=== PATIENT | female | born 1985 | race Hispanic/Latino ===

== ENCOUNTER 2019-07-31 16:53 | Inpatient (IN) | payer OTHER, SELFPAY ==
[~2019-07-31 16:53] MED LIST: Iopamidol-370 76% 500 ML 1 ML ONE
[2019-07-31] MEDS ORDERED: Acetaminophen 500 MG TAB ONE (17:29)
[2019-07-31] MEDS ORDERED: Furosemide 40 MG/4 ML VIAL ONE (17:29)
[2019-07-31 17:39] LABS: #Eosinphils 0.1 thou/uL (0.0-0.7); #Lymphocytes 0.9 thou/uL (1.20-3.40); #Monocytes 0.4 thou/uL (0.11-0.59); %Basophils 0.2 % (0.0-1.0); %Eosinophils 0.7 % (0.0-10.0); %Lymphocytes 11.6 % (21.0-51.0); %Monocytes 5.8 % (0.0-10.0); %Neutrophils 81.6 % (42.0-75.0); Hemoglobin 13.9 g/dL (12.0-16.0); Mean Corpuscular HGB CONC 34.1 g/dL (32.0-36.0); Mean Corpuscular Hemoglobin 29.6 pg (27.0-31.0); Mean Corpuscular Volume 86.9 fL (78.0-98.0); Mean Platelet Volume 8.7 fL (7.4-10.4); Platelet Count 243 thou/uL (130-400); RBC Distribution Width 12.7 % (11.5-14.5); White Blood Cell (WBC) Count 7.3 thou/uL (4.8-10.8)
[2019-07-31 18:08] LABS: ALT (SGPT) 86 U/L (8-55); AST (SGOT) 72 U/L (5-34); Alkaline Phosphatase 110 U/L (40-110); Anion Gap 14 mmol/L (10-20); BUN (Urea Nitrogen) 14 mg/dL (7.0-18.7); Bilirubin, Total 0.3 mg/dL (0.2-1.2); Calc. Creatinine Clearance 0 mL/min (70-130); Calcium 8.9 mg/dL (7.8-10.44); Carbon Dioxide 22 mmol/L (22-29); Chloride 106 mmol/L (98-107); Estimated GFR-MDRD Greater than 90; Globulin 3.3 g/dL (2.4-3.5); Glucose 105 mg/dL (70-105); Potassium 3.6 mmol/L (3.5-5.1); Protein, Total 7.3 g/dL (6.0-8.3); Sodium 138 mmol/L (136-145)
--- NOTE | 2019-07-31 18:42 | RAD ---
PORTABLE CHEST: 07/31/19 PROVIDED CLINICAL HISTORY: Shortness of breath. FINDINGS: There is marked scoliosis of the thoracolumbar spine limiting evaluation. Spinal instrumentation is n oted associated with this. The cardiac and mediastinal silhouette is distorted and difficult to evalu ate without gross evidence for cardiomegaly. There is patchy consolidation present at the right lung base. The left lung appears grossly clear. There is no definite evidence for pleural fluid or pneumot horax. IMPRESSION: Limited study with evidence for right basilar consolidation. Correlate with concerns for pneumonia. F ollow-up is recommended. POS: HANNAH
[2019-07-31] MEDS ORDERED: cefTRIAXone\\ROCEPHIN 1 GM VIAL ONE (19:18)
--- NOTE | 2019-07-31 19:18 | PDOC.HHP ---
Hospitalist HPI - History of Present Illness History of Present Illness: Patient with known PMH of severe scoliosis and asthma presents to the ED for evaluation of worsening shortness of breath. Tells me that she started having issues with her breathing about 1 week ago. She was able to manage the first few days at home with her usual inhalers/nebulizers. Tells me that over the last 2 days breathing is worsening and today she obtained no relief with her home inhalers. Refers very mild cough which is non productive and mainly brought about when her breathing is worse. To her knowledge she has not had any sick contacts. She only noticed some fever today. In ED she is noted to be tachypneic &tachycardic but maintaining good saturation in 2L via NC. Chest x-ray shows possible right basal pneumonia. Hospitalist ROS - Review of Systems Constitutional: reports: fever ENT: denies: ear pain, ear discharge, nose pain, nose discharge, nose congestion , mouth pain, mouth swelling, throat pain, throat swelling, other Respiratory: reports: cough, dry, shortness of breath, wheezing Cardiovascular: denies: chest pain, palpitations, orthopnea, paroxysmal noc. dyspnea, edema, light headedness, other Gastrointestinal: denies: nausea, vomiting, abdominal pain, diarrhea, constipation, melena, hematochezia, other Musculoskeletal: reports: back pain (chronic) Skin: denies: rash, lesions, arley, bruising, other Hospitalist History - Past Medical History Pulmonary: reports: asthma Musculoskeletal: reports: Other (Severe scoliosis with chronic back pain) - Family History Family History: denies: no pertinent history, arthritis, cancer, cardiac disorder, cerebrovascular accident, diabetes mellitus, gastrointestinal disorder , genitourinary disorder, hyperlipidemia, hypertension, musculoskeletal disorder , respiratory disorder, tuberculosis, thyroid disfunction, Other - Social History Smoking Status: Never smoker Activity level: independent ambulation - Exam General Appearance: NAD, awake alert Eye: PERRL ENT: normocephalic atraumatic, no oropharyngeal lesions, moist mucosa Neck: supple, no JVD Heart - other findings: Tachycardic Respiratory - other findings: Decreased breath sound b/l mild exp wheezing Gastrointestinal: negative: soft, non-tender, non-distended, normal bowel sounds , no palpable masses, no hepatomegaly, no splenomegaly, no bruit, no guarding, no rigidity, tender to palpation, distended, diminished bowl sounds, voluntary guarding Extremities - other findings: Severe scoliosis Neurological: negative: cranial nerve grossly intact, normal sensation to touch , no weakness, no focal deficits, no new deficit, facial droop, hemiplegia, speech deficit, vision deficit Musculoskeletal - other findings: Severe scoliosis Psychiatric: normal affect, normal behavior, A&O x 3 Hospitalist Results - Labs Result Diagrams: 07/31/19 17:33 07/31/19 17:33 Lab results: WBC 7.3 thou/uL (4.8-10.8) 07/31/19 17:33 Hgb 13.9 g/dL (12.0-16.0) 07/31/19 17:33 Hct 40.8 % (36.0-47.0) 07/31/19 17:33 MCV 86.9 fL (78.0-98.0) 07/31/19 17:33 Plt Count 243 thou/uL (130-400) 07/31/19 17:33 Neutrophils % 81.6 % (42.0-75.0) H 07/31/19 17:33 Sodium 138 mmol/L (136-145) 07/31/19 17:33 Potassium 3.6 mmol/L (3.5-5.1) 07/31/19 17:33 Chloride 106 mmol/L (98-107) 07/31/19 17:33 Carbon Dioxide 22 mmol/L (22-29) 07/31/19 17:33 BUN 14 mg/dL (7.0-18.7) 07/31/19 17:33 Creatinine 0.70 mg/dL (0.6-1.1) 07/31/19 17:33 Glucose 105 mg/dL (70-105) 07/31/19 17:33 Lactic Acid 2.2 mmol/L (0.5-2.2) 07/31/19 17:33 Calcium 8.9 mg/dL (7.8-10.44) 07/31/19 17:33 Total Bilirubin 0.3 mg/dL (0.2-1.2) 07/31/19 17:33 AST 72 U/L (5-34) H 07/31/19 17:33 ALT 86 U/L (8-55) H 07/31/19 17:33 Alkaline Phosphatase 110 U/L (40-110) 07/31/19 17:33 Troponin I Less than 0.010 ng/mL (< 0.028) 07/31/19 17:33 B-Natriuretic Peptide Less than 10.0 pg/mL (0-100) 07/31/19 17:33 Serum Total Protein 7.3 g/dL (6.0-8.3) 07/31/19 17:33 Albumin 4.0 g/dL (3.5-5.0) 07/31/19 17:33 Hospitalist H&P A/P - Problem (1) Pneumonia Code(s): J18.9 - PNEUMONIA, UNSPECIFIED ORGANISM Status: Acute Qualifiers: Pneumonia type: due to unspecified organism Laterality: right Lung location: lower lobe of lung Qualified Code(s): J18.9 - Pneumonia, unspecified organism (2) Asthma exacerbation Code(s): J45.901 - UNSPECIFIED ASTHMA WITH (ACUTE) EXACERBATION Status: Acute Qualifiers: Asthma severity: unspecified severity (3) Scoliosis Status: Chronic - Plan Plan: Pnemonia Patient with shortness of breath progression x 1 week On exam she appears short of breath but speaking in full sentences Chest x-ray with evidence of infiltrate CT chest is pending at time of admission Start IV Ceftriaxone plus azithromycin for CAP Continue with breathing treatments sched and PRN for asthma Follow blood & sputum cultures Continue with oxygen support Asthma exacerbation Continue with IV ABX per PNA plan Continue with IV solumedrol 40 mg TID Breathing treatments with duonebs sched and albuterol PRN Antitussives PRN Scoliosis with chronic back pain Restrictive lung disease as a result Continue with careful use of narcotics for back pain DVT PPX: Lovenox FULL CODE
[2019-07-31] MEDS ORDERED: Ondansetron PF 4 MG/2 ML Vial IVP PRN (19:30)
[2019-07-31] MEDS ORDERED: Albuterol Sulfate 2.5 mg/3 ml Neb NEB PRN (19:30)
[2019-07-31] MEDS ORDERED: Calcium Carbonate 500 MG ChewTAB PO PRN (19:30)
[2019-07-31] MEDS ORDERED: Senokot S 8.6-50 MG TAB PO PRN (19:30)
[2019-07-31] MEDS ORDERED: Albuterol 200 PUFF (6.7GM INHALER) INH PRN (19:50)
[2019-07-31] MEDS ORDERED: Azithromycin 500 MG VIAL ONE (20:00)
--- NOTE | 2019-07-31 20:06 | CT ---
CT ANGIOGRAM CHEST WITH IV CONTRAST AND 3D MIP RECONSTRUCTIONS: 07/31/19 PROVIDED CLINICAL HISTORY: Tachycardia and hypoxia. FINDINGS: There is no evidence for central or segmental pulmonary embolus. There are multifocal areas of ground glass opacity some of which demonstrate a mixed consolidation in volving both lungs predominantly in the right lung. These are without definitive peripheral distribut ion and do not demonstrate rounded morphology. The airway appears patent and of normal caliber. There is no pleural fluid or pneumothorax apparent. The visualized portions of the upper abdomen demonstrate no significant abnormality. Central appearin g left hepatic lobe cyst is seen. The osseous structures demonstrate no concerning lytic or blastic lesions. Extensive spinal scoliosis and multiple congenital vertebral and rib deformities are demonstrated. IMPRESSION: 1. No evidence for central or segmental pulmonary embolus. 2. Multifocal bilateral ground glass opacity and admixed consolidation. Imaging features can be seen with viral pneumonia, though are nonspecific and can occur with a variety of infectious and kennedy nfectious processes. POS: HANNAH
[2019-07-31] MEDS ORDERED: Azithromycin 500 MG in Sodium Chloride 0.9% 250 ML 250 ML IVPB SCH (21:00)
[2019-07-31] MEDS ORDERED: Ondansetron PF 4 MG/2 ML Vial ONE (21:02)
[2019-07-31 22:04] VITALS: BMI 30.5
[2019-08-01] MEDS: Sodium Chloride 0.9% 1,000 ML IV SCH ×5 (00:08→21:19)
[2019-08-01] MEDS: methylPREDNISolone Sod Succ 40 MG VIAL IVP SCH ×2 (00:08→06:04)
[2019-08-01] MEDS: Albuterol 200 PUFF (6.7GM INHALER) INH SCH ×4 (00:08→18:12)
[2019-08-01 04:46] LABS: #Lymphocytes 0.6 thou/uL (1.20-3.40); #Monocytes 0.1 thou/uL (0.11-0.59); #Neutrophils 6.4 thou/uL (1.40-6.50); %Eosinophils 0.3 % (0.0-10.0); %Lymphocytes 8.9 % (21.0-51.0); %Monocytes 1.9 % (0.0-10.0); Hemoglobin 13.3 g/dL (12.0-16.0); Mean Corpuscular HGB CONC 36.3 g/dL (32.0-36.0); Mean Corpuscular Hemoglobin 31.5 pg (27.0-31.0); Mean Corpuscular Volume 86.6 fL (78.0-98.0); Mean Platelet Volume 8.2 fL (7.4-10.4); Platelet Count 218 thou/uL (130-400); RBC Distribution Width 12.7 % (11.5-14.5); Red Blood Cell (RBC) Count 4.23 mill/uL (4.20-5.40); White Blood Cell (WBC) Count 7.2 thou/uL (4.8-10.8)
[2019-08-01 05:10] LABS: Anion Gap 10 mmol/L (10-20); BUN (Urea Nitrogen) 9 mg/dL (7.0-18.7); Calc. Creatinine Clearance 89 mL/min (70-130); Calcium 7.9 mg/dL (7.8-10.44); Carbon Dioxide 24 mmol/L (22-29); Chloride 109 mmol/L (98-107); Estimated GFR-MDRD Greater than 90; Glucose 143 mg/dL (70-105); Potassium 3.7 mmol/L (3.5-5.1); Sodium 139 mmol/L (136-145)
[2019-08-01] MEDS: HYDROcodone/Acetaminophen 5/325 mg Tablet PO PRN ×3 (06:05→14:12)
[2019-08-01] MEDS: Enoxaparin Sodium 40 MG/0.4 ML SYRINGE SC SCH (08:10)
--- NOTE | 2019-08-01 13:26 | EKG ---
Test Reason : SOB Blood Pressure : / mmHG Vent. Rate : 120 BPM Atrial Rate : 120 BPM P-R Int : 122 ms QRS Dur : 078 ms QT Int : 320 ms P-R-T Axes : 027 043 064 degrees QTc Int : 452 ms Sinus tachycardia Abnormal ECG Confirmed by JAMAICA OBRIEN, JESSICA Monroy ([id number]), newspaper or periodical editor GARY EBLL ([id number]) on 08/01/2019 1:25:49 PM Referred By: JAMAICA Confirmed By:JESSICA BERUMEN MD
[2019-08-01] MEDS ORDERED: Azithromycin 250 MG TAB PO SCH (14:00)
[2019-08-01] MEDS ORDERED: Ventolin HFA Inhaler 60 PUFF INHALER INH PRN (14:02)
--- NOTE | 2019-08-01 14:26 | CON ---
DATE OF CONSULTATION: 08/01/2019 REASON FOR CONSULTATION: COVID-19 in the setting of kyphoscoliosis and asthma. HISTORY OF PRESENT ILLNESS: A 34-year-old young woman, history of kyphoscoliosis with multiple surgeries in [facility] as well as asthma on chronic inhalers, who developed worsening shortness of breath for about a week. A little bit of cough associated with it, nonproductive. Apparently, her mother has a suspicion of COVID-19, although she was not tested, but the mother works for [employer] , and apparently, there has been some patients with COVID-19 diagnosed in the facility. She lives with 2 sisters and 1 niece, and all 3 are healthy at the moment. On arrival, she was tachypneic, tachycardic, and had an infiltrate in the right side. On arrival, her temp was 100.4, BP 111/65, pulse 135, respiratory rate 40, O2 saturations 95% on room air. She was awake and alert. The eye exam was normal. The lung exam showed clear breath sounds. Heart examination was normal, except for tachycardia. She had kyphoscoliosis, which was severe. She had a chest CT done on arrival, which showed no pulmonary embolism and multifocal bilateral ground- glass opacities. She has been started on Rocephin, azithromycin, and then switched to levofloxacin. I do not think the COVID test has returned yet. Currently, she is awake. She is still tachypneic. She is oriented, follows commands, pleasant. Denies pain. No headaches. No sore throat, odynophagia, or dysphagia. No abdominal pain. No diarrhea. No genitourinary symptoms. PAST MEDICAL HISTORY: Kyphoscoliosis with multiple surgeries in [facility]. Asthma. PAST SURGICAL HISTORY: Back surgeries in [facility]. SOCIAL HISTORY: Lives with family. Never smoker. FAMILY HISTORY: Mother has had a respiratory illness for the past 2 weeks, which seems to be improving. Apparently, she has not been tested for COVID-19. The mother works at [employer], and apparently there has been an outbreak of respiratory illness there according to the patient. CURRENT MEDICATIONS: Include, 1. P.r.n. medications, Proventil. 2. She takes [place] for back pain. 3. Lovenox. 4. Levofloxacin. 5. Methylprednisolone. PHYSICAL EXAMINATION: VITAL SIGNS: She is now down to 98.5, blood pressure 117/77, pulse 102, respirations 20-24, O2 saturation 96%-99% on 2 L. SKIN: Normal. She has a peripheral IV access. No lymphadenopathy. HEENT: Ocular movements conjugate. Oral cavity normal. NECK: With severe kyphoscoliosis in the chest. LUNGS: With no obvious wheezing or crackles. HEART: S1, S2. Regular rate. ABDOMEN: Soft, not distended. MUSCULOSKELETAL: No joint inflammatory activity noted. NEUROLOGIC: She moves extremities on command. Oriented. Follows commands. Speech is normal and recollection. Recall is normal. LABORATORY DATA: White cell count 7.2, hemoglobin 13, platelets 218, 89% neutrophils. Sodium 139, creatinine 0.65, AST 72, ALT 86. BNP was less than 10. Albumin 4.0. Urinalysis, 4 to 6 wbc's. Microbiology, influenza A and B were negative. Blood culture, no growth thus far. ASSESSMENT: 1. Severe kyphoscoliosis and asthma. 2. Multifocal pulmonary infiltrates and concern for coronavirus disease-19. It appears that her serology was positive according to the RN. She does have lymphocytopenia. In the face of a CT scan and some possible exposure in the home setting, this is a high risk for the viral illness. Patients with asthma are not necessarily at high risk for severe COVID-19, although there is concern with that, particularly the patients with severe asthma. She does have the additional kyphoscoliotic deformity, which will limit her total lung capacity and places at high risk for respiratory failure, so I think that she would be a good candidate for treatment with hydroxychloroquine, plus/minus azithromycin depending on the results of the test bearing in mind that those treatments are not yet evidence based short of small studies. Job ID: [id number] [facility]
[2019-08-01] MEDS ORDERED: Albuterol 200 PUFF (6.7GM INHALER) INH PRN (14:30)
--- NOTE | 2019-08-01 14:57 | PDOC.HOSPP ---
- Subjective Encounter Date: 08/01/19 Encounter Time: 14:55 Subjective: Says she is feeling a little better. Does not feel like she is wheezing as much as she did on admission. - Objective Vital Signs & Weight: Vital Signs (12 hours) Temp Pulse Resp BP BP Pulse Ox 08/01/19 10:42 97.4 F L 102 H 20 117/77 96 08/01/19 08:17 99 08/01/19 08:06 97.6 F 103 H 20 123/83 99 08/01/19 04:00 98.0 F 102 H 24 H 117/73 95 Weight Admit Weight 100 lb 3.2 oz Weight 100 lb 3.2 oz I&O: 07/31/19 08/01/19 08/02/19 06:59 06:59 06:59 Intake Total 480 Balance 480 Result Diagrams: 08/01/19 04:33 08/01/19 04:33 Hospitalist ROS - Medication Medications: Active Medications Generic Name Dose Route Start Last Admin Trade Name Freq PRN Reason Stop Dose Admin Hydrocodone Bitart/Acetaminophen 1 tab 07/31/19 19:30 08/01/19 14:12 [place] 5/325 PO 1 tab Q4H PRN Administration Moderate Pain (4-6) Albuterol Sulfate 2 puff 08/01/19 01:00 08/01/19 14:06 Proventil Hfa INH 2 puff [id number] NEVA Administration Enoxaparin Sodium 40 mg 08/01/19 09:00 08/01/19 08:10 Lovenox SC 40 mg 0900 NEVA Administration Sodium Chloride 1,000 mls @ 125 mls/hr 07/31/19 19:30 08/01/19 10:38 Normal Saline 0.9% IV Not Given .Q8H NEVA - Exam General Appearance: NAD, awake alert Heart: RRR, no murmur, no gallops, no rubs, normal peripheral pulses Respiratory - other findings: Very fine rales. No wheezes. Short breaths ( likely due to scoliosis). Gastrointestinal: soft, non-tender, non-distended, normal bowel sounds, no palpable masses, no hepatomegaly, no splenomegaly, no bruit Extremities: no cyanosis, no clubbing, no edema Hosp A/P (1) COVID-19 virus infection Code(s): U07.1 - COVID-19 Status: Acute (2) Asthma exacerbation Code(s): J45.901 - UNSPECIFIED ASTHMA WITH (ACUTE) EXACERBATION Status: Acute Qualifiers: Asthma severity: unspecified severity (3) Pneumonia Code(s): J18.9 - PNEUMONIA, UNSPECIFIED ORGANISM Status: Acute Qualifiers: Pneumonia type: due to unspecified organism Laterality: right Lung location: lower lobe of lung Qualified Code(s): J18.9 - Pneumonia, unspecified organism (4) Scoliosis Status: Chronic - Plan Covid: ID consult: Hydroxychloroquine and Azithro given her high risk with asthma and severe scoliosis. Modest steroids. Resp failure: Supplemental oxygen. Sats are good on 2 lpm/NC for now. Asthma: MDI Low dose steroids. Feeling better overall.
[2019-08-01] MEDS: Acetaminophen 325 MG TAB PO PRN (16:36)
[2019-08-01] MEDS ORDERED: cefTRIAXone\\ROCEPHIN 1 GM in Sodium Chloride 0.9% 100 ML IVPB SCH (20:00)
[2019-08-01] MEDS ORDERED: Azithromycin 500 MG in Sodium Chloride 0.9% 250 ML 250 ML IVPB SCH (21:00)
[2019-08-01] MEDS: Azithromycin 250 MG TAB PO SCH (21:17)
[2019-08-01] MEDS: Hydroxychloroquine Sulfate 200 MG TAB PO SCH (21:17)
[2019-08-02] MEDS: Albuterol 200 PUFF (6.7GM INHALER) INH SCH ×6 (01:30→23:50)
[2019-08-02] MEDS: Hydroxychloroquine Sulfate 200 MG TAB PO SCH ×2 (08:31→20:10)
[2019-08-02] MEDS: Enoxaparin Sodium 40 MG/0.4 ML SYRINGE SC SCH (08:31)
[2019-08-02] MEDS: Sodium Chloride 0.9% 1,000 ML IV SCH ×3 (08:35→16:30)
[2019-08-02] MEDS ORDERED: methylPREDNISolone Sod Succ 40 MG VIAL IVP SCH (09:00)
[2019-08-02] MEDS: HYDROcodone/Acetaminophen 5/325 mg Tablet PO PRN ×2 (09:58→19:56)
[2019-08-02 10:31] LABS: #Lymphocytes 0.9 thou/uL (1.20-3.40); #Monocytes 0.4 thou/uL (0.11-0.59); #Neutrophils 10.8 thou/uL (1.40-6.50); %Basophils 0.1 % (0.0-1.0); %Eosinophils 0.2 % (0.0-10.0); %Lymphocytes 7.6 % (21.0-51.0); %Monocytes 3.1 % (0.0-10.0); Hemoglobin 12.4 g/dL (12.0-16.0); Mean Corpuscular HGB CONC 33.4 g/dL (32.0-36.0); Mean Corpuscular Hemoglobin 28.9 pg (27.0-31.0); Mean Corpuscular Volume 86.4 fL (78.0-98.0); Mean Platelet Volume 7.9 fL (7.4-10.4); Platelet Count 285 thou/uL (130-400); RBC Distribution Width 12.5 % (11.5-14.5); White Blood Cell (WBC) Count 12.1 thou/uL (4.8-10.8)
[2019-08-02 10:56] LABS: ALT (SGPT) 142 U/L (8-55); AST (SGOT) 88 U/L (5-34); Albumin 3.4 g/dL (3.5-5.0); Alkaline Phosphatase 117 U/L (40-110); Anion Gap 8 mmol/L (10-20); BUN (Urea Nitrogen) 8 mg/dL (7.0-18.7); Bilirubin, Total 0.4 mg/dL (0.2-1.2); Calc. Creatinine Clearance 97 mL/min (70-130); Calcium 8.3 mg/dL (7.8-10.44); Carbon Dioxide 24 mmol/L (22-29); Chloride 108 mmol/L (98-107); Estimated GFR-MDRD Greater than 90; Globulin 3.1 g/dL (2.4-3.5); Glucose 79 mg/dL (70-105); Potassium 3.2 mmol/L (3.5-5.1); Protein, Total 6.5 g/dL (6.0-8.3); Sodium 137 mmol/L (136-145)
--- NOTE | 2019-08-02 15:25 | PDOC.HOSPP ---
- Subjective Encounter Date: 08/02/19 Encounter Time: 15:23 Subjective: Feeling better. Said she was a little short of breath this morning and moreso when she got up to go to the bathroom. That is better this afternoon. - Objective Vital Signs & Weight: Vital Signs (12 hours) Temp Pulse Resp BP BP Pulse Ox 08/02/19 12:04 97.5 F L 103 H 18 127/78 99 08/02/19 07:27 98.1 F 109 H 22 H 133/87 95 08/02/19 03:41 97.8 F 91 16 133/74 99 Weight Admit Weight 100 lb 3.2 oz Weight 100 lb 3.2 oz I&O: 08/01/19 08/02/19 08/03/19 06:59 06:59 06:59 Intake Total 2480 Balance 2480 Result Diagrams: 08/02/19 10:13 08/02/19 10:13 Hospitalist ROS - Medication Medications: Active Medications Generic Name Dose Route Start Last Admin Trade Name Freq PRN Reason Stop Dose Admin Acetaminophen 650 mg 07/31/19 19:30 08/01/19 16:36 Tylenol PO 650 mg Q4H PRN Administration Headache/Fever/Mild Pain (1-3) Hydrocodone Bitart/Acetaminophen 1 tab 07/31/19 19:30 08/02/19 09:58 [place] 5/325 PO 1 tab Q4H PRN Administration Moderate Pain (4-6) Albuterol Sulfate 2 puff 08/01/19 01:00 08/02/19 12:05 Proventil Hfa INH 2 puff [id number] NEVA Administration Azithromycin 250 mg 08/01/19 21:00 08/01/19 21:17 Zithromax PO 08/04/19 21:01 250 mg 2100 NEVA Administration Calcium Carbonate 1,000 mg 07/31/19 19:30 08/01/19 16:36 Tums PO 1,000 mg Q4H PRN Administration Heartburn or Indigestion Enoxaparin Sodium 40 mg 08/01/19 09:00 08/02/19 08:31 Lovenox SC 40 mg 0900 NEVA Administration Sodium Chloride 1,000 mls @ 125 mls/hr 07/31/19 19:30 08/02/19 08:35 Normal Saline 0.9% IV 1,000 mls .Q8H NEVA Administration Methylprednisolone Sodium Succinate 40 mg 08/02/19 09:00 08/02/19 08:32 Solu-Medrol IVP 40 mg DAILY NEVA Administration - Exam General Appearance: NAD, awake alert Heart: RRR, no murmur, no gallops, no rubs, normal peripheral pulses Respiratory: CTAB, no wheezes, no rales, no ronchi Respiratory - other findings: Exam is a little limited by her body habitus/ severe scoliosis. Gastrointestinal: soft, non-tender, non-distended, normal bowel sounds Neurological: no focal deficits Musculoskeletal: normal tone Musculoskeletal - other findings: Severe scoliosis. Hosp A/P (1) COVID-19 virus infection Code(s): U07.1 - COVID-19 Status: Acute (2) Asthma exacerbation Code(s): J45.901 - UNSPECIFIED ASTHMA WITH (ACUTE) EXACERBATION Status: Acute Qualifiers: Asthma severity: unspecified severity (3) Pneumonia Code(s): J18.9 - PNEUMONIA, UNSPECIFIED ORGANISM Status: Acute Qualifiers: Pneumonia type: due to unspecified organism Laterality: right Lung location: lower lobe of lung Qualified Code(s): J18.9 - Pneumonia, unspecified organism (4) Scoliosis Status: Chronic (5) Transaminitis Code(s): R74.0 - NONSPEC ELEV OF LEVELS OF TRANSAMNS & LACTIC ACID DEHYDRGNSE Status: Acute - Plan Covid: ID consult appreciated. Hydroxychloroquine and Azithro given her high risk with asthma and severe scoliosis. Modest steroids. Seems to be doing fairly well. She has no idea how she might have been exposed. Resp failure: Supplemental oxygen. Sats are good on 2 lpm/NC for now. Will try to wean if she is still doing well tomorrow. Asthma: MDI Low dose steroids. Feeling better overall. Disposition: She lives with her mother, sister and niece. They are asymptomatic. She thinks she could isolate at home. If she remains afebrile tomorrow and she is breathing comfortably, consider discharge. Resource Center consulted to see if she may need help with meds.
[2019-08-02] MEDS ORDERED: Lorazepam 2 MG/ML VIAL ONE (15:46)
[2019-08-02] MEDS ORDERED: Morphine 4 MG/ML VIAL ONE (15:51)
[2019-08-02 16:28] LABS: Actual Bicarbonate (HCO3a) 21.8 mEq/L (22-28); CO2 Tension 34.2 mmHg (35.0-45.0); Calcium, Ionized 1.17 mmol/L (1.12-1.30); Carboxyhemoglobin (COHb) 0.1 gm% (0.0-3.0); Hemoglobin (Hb) 12.9 g/dL (12.0-16.0); O2 Tension (PaO2) 165.9 mmHg (80.0-100.0); Potassium - ABG Lab 3.65 mmol/L (3.70-5.30); pH, Arterial 7.42 (7.35-7.45)
[2019-08-02 16:29] LABS: Puncture Site RRA
--- NOTE | 2019-08-02 17:14 | CON ---
DATE OF CONSULTATION: HISTORY OF PRESENT ILLNESS: A 34-year-old unfortunate female from home, apparently has kyphoscoliosis, history of asthma, apparently presented to the ER with symptoms of shortness of breath. X-ray showed right-sided pneumonia. The serology for COVID viral infection 19 was positive. She was placed in isolation, started on Zithromax and Plaquenil 24 hours ago. This morning, she was doing well. Later on this evening, she started having more difficulty of breathing and shortness of breath. Blood gas done on an emergency basis on a non-rebreather shows a pO2 of 165, pCO2 of 34, pH 7.42. Lytes were normal. Potassium was low at 3.6. Primary care physician went to the room and notified me that she was not wheezing. Because of COVID positive serology, we are trying to minimize exposure, cannot go in the room. PAST MEDICAL HISTORY: Pertinent for previous gallstones, scoliosis, and asthma. PREVIOUS SURGERIES: Multiple. Back, she has a sandhya in place. SOCIAL HISTORY: No alcohol. No tobacco. No drug history. MEDICATIONS: Home medicines include Flovent 110, albuterol, tramadol, pregabalin, cyclobenzaprine. Hospital medicines are Zithromax, hydroxychloroquine, steroids, and albuterol inhaler. ALLERGIES: NONE. PHYSICAL EXAMINATION: VITAL SIGNS: She is breathing about 25, temperature 98, pulse 70, blood pressure , saturations now 100%. CHEST: Minimal wheezing, no crackles. CARDIAC: Normal S1 and S2. ABDOMEN: No masses. LABORATORY DATA: Liver function slightly elevated. ASSESSMENT: Respiratory failure, bronchopneumonia, coronavirus disease positive, history of asthma, severe kyphoscoliosis with a sandhya in place, chronic pain syndrome. Increased her steroids, added Maxipime and increased neb treatments, supportive care. If condition gets worse, anesthesia was present at the bedside, they would intubate her. TIME SPENT: This is a note of consultation, 70 minutes, 50% in direct patient care. Job ID: [id number]
--- NOTE | 2019-08-02 18:00 | PRG ---
DATE OF SERVICE: 08/02/2019 SUBJECTIVE: Ms. Bolanos has been transferred to the ICU because she became hypoxemic. Now, she has a 100% non-rebreathing Ventimask and saturating 100. OBJECTIVE: LUNGS: Scattered inspiratory crackles. HEART: S1 and S2. ABDOMEN: Soft. LABORATORY DATA: White cell count is 12.1, hemoglobin 12.4. Creatinine 0.6, AST 88, ALT 142. ASSESSMENT AND DISCUSSION: Severe kyphoscoliosis and asthma, multifocal pulmonary infiltrates with COVID positive PCR, lymphocytopenia and now respiratory decompensation, probably in part related to the baseline diminished lung capacity due to severe kyphoscoliosis associated with asthma. The patient was almost intubated this morning, but now she is doing well with 100% non-rebreather mask, but it is at high risk for having to require intubation due to limited lung reserve and superimposed infection. Job ID: [id number]
--- NOTE | 2019-08-02 19:06 | PRG ---
DATE OF SERVICE: 08/02/2019 The patient was seen on normal rounds earlier in the day and appeared to be doing fairly well. However, within a matter of just a few short minutes, the patient developed some pain in her chest and became more short of breath. She had sats noted down to 77% and her heart rate as high as 140. A code green was called and I responded promptly. The patient was leaning forward, clutching her chest and very tachypneic, we had increased her oxygen and her saturations were good at that point; however, she was on 100% non-rebreather and was still very tachypneic, continuing to have chest pain. She had a mg of Ativan initially. Subsequent EKG showed no acute ischemic changes. She then had a mg of morphine. She had no resolution of her tachypnea or her pain. She was therefore subsequently transferred to the ICU. There, the case was discussed with Dr. Cochran. We were finally able to get a blood gas, which fortunately revealed reasonable PO2 and there was no indication at that time for intubation. At this point, it is still not entirely clear to me what might have led to the patient's symptoms. I am concerned that she had possible PE, although she is on appropriate DVT prophylaxis. Patients with COVID are certainly more hypercoagulable and certainly needs to be considered going forward if she does not improve. She has a difficult assessment because of her severe scoliosis and her exam is limited and her ability to take a deep breath is profoundly limited. She may also have some GI related chest pain with the azithromycin and hydroxychloroquine given her severe scoliosis and altered anatomy. This is also in light of her steroids. We will cover with PPI. Total time in critical care was 63 minutes. Job ID: [id number]
[2019-08-02] MEDS: Ipratropium Oral Inhaler INH SCH ×2 (19:10→23:10)
[2019-08-02] MEDS: Azithromycin 250 MG TAB PO SCH (20:10)
[2019-08-02] MEDS: Cefepime 2 GM in Sodium Chloride 0.9% 100 ML IVPB SCH (20:10)
[2019-08-02] MEDS: methylPREDNISolone Sod Succ 40 MG VIAL IVP SCH (20:11)
[2019-08-03] MEDS: Albuterol 200 PUFF (6.7GM INHALER) INH SCH ×6 (02:21→22:21)
[2019-08-03 04:53] LABS: #Lymphocytes 0.7 thou/uL (1.20-3.40); #Monocytes 0.3 thou/uL (0.11-0.59); #Neutrophils 7.1 thou/uL (1.40-6.50); %Basophils 0.2 % (0.0-1.0); %Eosinophils 0.2 % (0.0-10.0); %Lymphocytes 8.4 % (21.0-51.0); %Monocytes 3.4 % (0.0-10.0); %Neutrophils 87.8 % (42.0-75.0); Hemoglobin 12.4 g/dL (12.0-16.0); Mean Corpuscular HGB CONC 33.6 g/dL (32.0-36.0); Mean Corpuscular Hemoglobin 29.1 pg (27.0-31.0); Mean Corpuscular Volume 86.8 fL (78.0-98.0); Mean Platelet Volume 8.1 fL (7.4-10.4); Platelet Count 294 thou/uL (130-400); RBC Distribution Width 12.6 % (11.5-14.5); Red Blood Cell (RBC) Count 4.25 mill/uL (4.20-5.40); White Blood Cell (WBC) Count 8.1 thou/uL (4.8-10.8)
[2019-08-03 05:33] LABS: ALT (SGPT) 130 U/L (8-55); AST (SGOT) 64 U/L (5-34); Albumin 3.4 g/dL (3.5-5.0); Alkaline Phosphatase 133 U/L (40-110); Anion Gap 12 mmol/L (10-20); BUN (Urea Nitrogen) 11 mg/dL (7.0-18.7); Bilirubin, Total 0.3 mg/dL (0.2-1.2); Calc. Creatinine Clearance 98 mL/min (70-130); Calcium 8.5 mg/dL (7.8-10.44); Carbon Dioxide 20 mmol/L (22-29); Chloride 109 mmol/L (98-107); Estimated GFR-MDRD Greater than 90; Globulin 3.2 g/dL (2.4-3.5); Glucose 156 mg/dL (70-105); Potassium 3.5 mmol/L (3.5-5.1); Protein, Total 6.6 g/dL (6.0-8.3); Sodium 137 mmol/L (136-145)
[2019-08-03] MEDS: Tiotropium Bromide 4 GM INHALER IH SCH ×2 (06:02→09:59)
--- NOTE | 2019-08-03 07:26 | RAD ---
SINGLE VIEW CHEST: Date: 08/03/2019 COMPARISON: 07/31/2019. HISTORY: Pneumonia. FINDINGS: Single view of the chest is limited secondary to rotation. A sandhya is seen in the spine from prior scol iosis surgery. The heart is normal in size. There is likely an infiltrate in the right lower lobe. Th ere is a questionable small left pleural effusion. IMPRESSION: Stable exam. POS: [facility]
[2019-08-03] MEDS: methylPREDNISolone Sod Succ 40 MG VIAL IVP SCH ×2 (07:52→21:36)
[2019-08-03] MEDS: Enoxaparin Sodium 40 MG/0.4 ML SYRINGE SC SCH (07:52)
[2019-08-03] MEDS: Hydroxychloroquine Sulfate 200 MG TAB PO SCH ×2 (07:53→21:36)
[2019-08-03] MEDS: Cefepime 2 GM in Sodium Chloride 0.9% 100 ML IVPB SCH ×2 (07:57→21:35)
[2019-08-03] MEDS ORDERED: Potassium Chloride 20 MEQ TAB PO ONE (09:00)
[2019-08-03] MEDS: ALPRAZolam 0.25 MG TAB PO PRN ×2 (09:05→21:36)
[2019-08-03] MEDS: HYDROcodone/Acetaminophen 5/325 mg Tablet PO PRN (10:03)
--- NOTE | 2019-08-03 13:13 | PDOC.HOSPP ---
- Subjective Encounter Date: 08/03/19 Encounter Time: 13:09 Subjective: Doing better. Breathing comfortably. No cough. - Objective Vital Signs & Weight: Vital Signs (12 hours) Temp Pulse Ox 08/03/19 12:00 98.1 F 08/03/19 10:42 99 08/03/19 08:00 97.7 F 08/03/19 07:09 100 08/03/19 04:00 98.5 F 08/03/19 02:17 100 Weight Admit Weight 103 lb 2.821 oz Weight 100 lb 3.2 oz Most Recent Monitor Data Heart Rate from ECG 92 NIBP 127/79 NIBP BP-Mean 95 Respiration from ECG 30 SpO2 100 I&O: 08/02/19 08/03/19 08/04/19 06:59 06:59 06:59 Intake Total 2480 720 240 Output Total 1350 400 Balance 2480 -630 -160 Result Diagrams: 08/03/19 03:29 08/03/19 03:29 Additional Labs: Accuchecks 08/02/19 15:50 POC Glucose 128 H Hospitalist ROS - Medication Medications: Active Medications Generic Name Dose Route Start Last Admin Trade Name Freq PRN Reason Stop Dose Admin Acetaminophen 650 mg 07/31/19 19:30 08/01/19 16:36 Tylenol PO 650 mg Q4H PRN Administration Headache/Fever/Mild Pain (1-3) Hydrocodone Bitart/Acetaminophen 1 tab 07/31/19 19:30 08/03/19 10:03 [place] 5/325 PO 1 tab Q4H PRN Administration Moderate Pain (4-6) Albuterol Sulfate 2 puff 08/01/19 14:30 08/02/19 15:50 Proventil Hfa INH 2 puff Q4H PRN Administration SOB &/or Wheezing Albuterol Sulfate 2 puff 08/02/19 18:30 08/03/19 10:15 Proventil Hfa INH 2 puff [id number] NEVA Administration Alprazolam 0.125 mg 08/03/19 08:39 08/03/19 09:05 Xanax PO 0.125 mg TIDPRN PRN Administration Anxiety Azithromycin 250 mg 08/01/19 21:00 08/02/19 20:10 Zithromax PO 08/04/19 21:01 250 mg 2100 NEVA Administration Calcium Carbonate 1,000 mg 07/31/19 19:30 08/01/19 16:36 Tums PO 1,000 mg Q4H PRN Administration Heartburn or Indigestion Enoxaparin Sodium 40 mg 08/01/19 09:00 08/03/19 07:52 Lovenox SC 40 mg 0900 NEVA Administration Hydroxychloroquine Sulfate 200 mg 08/02/19 21:00 08/03/19 07:53 Plaquenil PO 08/06/19 09:01 200 mg BID NEVA Administration Cefepime HCl 2 gm/ Sodium 100 mls @ 200 mls/hr 08/02/19 21:00 08/03/19 07:57 Chloride IVPB 100 mls Q12HR NEVA Administration Sodium Chloride 1,000 mls @ 50 mls/hr 08/02/19 18:00 08/02/19 16:30 Normal Saline 0.9% IV 1,000 mls .Q20H NEVA Administration Methylprednisolone Sodium Succinate 40 mg 08/02/19 21:00 08/03/19 07:52 Solu-Medrol IVP 40 mg BID NEVA Administration Tiotropium [place] 0 gm 08/03/19 07:00 08/03/19 09:59 Spiriva Respimat IH 4 gm DAILY-RT NEVA Administration - Exam General Appearance: NAD, awake alert Heart: RRR, no murmur, no gallops, no rubs, normal peripheral pulses Respiratory: CTAB, no wheezes, no rales, no ronchi, normal chest expansion, no tachypnea, normal percussion Respiratory - other findings: Diminished and shallow breaths due to scoliosis. Gastrointestinal: soft, non-tender, non-distended, normal bowel sounds, no palpable masses, no hepatomegaly, no splenomegaly, no bruit Extremities: no cyanosis, no clubbing, no edema Psychiatric: normal affect, normal behavior, A&O x 3 Hosp A/P (1) COVID-19 virus infection Code(s): U07.1 - COVID-19 Status: Acute (2) Asthma exacerbation Code(s): J45.901 - UNSPECIFIED ASTHMA WITH (ACUTE) EXACERBATION Status: Acute Qualifiers: Asthma severity: unspecified severity (3) Pneumonia Code(s): J18.9 - PNEUMONIA, UNSPECIFIED ORGANISM Status: Acute Qualifiers: Pneumonia type: due to unspecified organism Laterality: right Lung location: lower lobe of lung Qualified Code(s): J18.9 - Pneumonia, unspecified organism (4) Scoliosis Status: Chronic (5) Transaminitis Code(s): R74.0 - NONSPEC ELEV OF LEVELS OF TRANSAMNS & LACTIC ACID DEHYDRGNSE Status: Acute - Plan Covid: ID consult appreciated. Hydroxychloroquine and Azithro given her high risk with asthma and severe scoliosis. Steroids increased 08/03/19. Seems to be doing fairly well after her episode yesterday. At the time of the problem yesterday, she was not able to talk due to tachypnea. Talking to her today, it sounds like it might have been more of a panic attack. Excluding that, she has been very stable. If she remains afebrile and stable, she could likely DC home in the next day or two. Resp failure: Supplemental oxygen. Sats are good on 2 lpm/NC for now. Very briefly had sats in the 70's yesterday, but quickly resolved. Asthma: MDI Low dose steroids. Feeling better overall. Disposition: She lives with her mother, sister and niece. They are asymptomatic. Can likely DC back to home when ready.
[2019-08-03] MEDS: Sodium Chloride 0.9% 1,000 ML IV SCH (13:29)
--- NOTE | 2019-08-03 14:58 | PRG ---
DATE OF SERVICE: 08/03/2019 SUBJECTIVE: Ms. Bolanos is in the ICU still. She is now on a nasal cannula. She appears comfortable. OBJECTIVE: VITAL SIGNS: Normal. O2 saturations are 100%. LUNGS: With few crackles here and there. No wheezing. HEART: S1, S2. Regular rate. ABDOMEN: Soft. LABORATORY DATA: White cell count 8.1, hemoglobin 12.4, lymphocyte count is at 700. DIAGNOSTIC DATA: Chest x-ray with likely infiltrate in right lower lobe. ASSESSMENT AND DISCUSSION: Severe kyphoscoliosis, multiple prior surgeries, asthma, and proven COVID-19, positive PCR. The patient had an event yesterday, but now she is doing quite well off nonrebreathing mask. Job ID: [id number]
--- NOTE | 2019-08-03 15:47 | PRG ---
DATE OF SERVICE: 08/03/2019 SUBJECTIVE: Barbara Bolanos has been intermittently getting very anxious per my discussion with the nurses. She is in no distress. OBJECTIVE: VITAL SIGNS: When I walked in the room, oximetry 99 on 2 L, heart rate 96, blood pressure 128/75, respiratory rates in the 20s. LUNGS: Unchanged. HEART: Unchanged. ABDOMEN: Unchanged. LABORATORY DATA: White count 8.1, hemoglobin 12.4, platelets 294. Sodium 137, potassium 3.5, chloride 109, bicarb creatinine . Intake and outputs negative . Chest x-ray is unchanged. It is hard to interpret the film given her severe scoliosis. IMPRESSION: 1. Asthma. 2. Anxiety. 3. Borderline hypoxemia. She does not have an impressive infiltrate on her chest radiograph. I suspect with some anxiolytics, nebulizer treatments, and supportive care, we will see ongoing improvement. We may be able to decrease her steroids again tomorrow if she has a good night. Job ID: [id number]
[2019-08-03] MEDS: Azithromycin 250 MG TAB PO SCH (21:35)
[2019-08-03] MEDS: Acetaminophen 325 MG TAB PO PRN (21:36)
[2019-08-04] MEDS: Albuterol 200 PUFF (6.7GM INHALER) INH SCH ×6 (02:07→22:50)
[2019-08-04 06:52] LABS: #Monocytes 0.6 thou/uL (0.11-0.59); #Neutrophils 6.2 thou/uL (1.40-6.50); %Basophils 0.1 % (0.0-1.0); %Eosinophils 0.3 % (0.0-10.0); %Lymphocytes 12.6 % (21.0-51.0); %Monocytes 7.7 % (0.0-10.0); %Neutrophils 79.3 % (42.0-75.0); Hemoglobin 12.9 g/dL (12.0-16.0); Mean Corpuscular HGB CONC 34.8 g/dL (32.0-36.0); Mean Corpuscular Hemoglobin 30.1 pg (27.0-31.0); Mean Corpuscular Volume 86.5 fL (78.0-98.0); Mean Platelet Volume 7.4 fL (7.4-10.4); Platelet Count 358 thou/uL (130-400); RBC Distribution Width 12.5 % (11.5-14.5); White Blood Cell (WBC) Count 7.8 thou/uL (4.8-10.8)
[2019-08-04] MEDS: Acetaminophen 325 MG TAB PO PRN ×2 (07:02→17:30)
[2019-08-04 07:14] LABS: ALT (SGPT) 132 U/L (8-55); AST (SGOT) 54 U/L (5-34); Albumin 3.7 g/dL (3.5-5.0); Alkaline Phosphatase 131 U/L (40-110); Anion Gap 10 mmol/L (10-20); BUN (Urea Nitrogen) 13 mg/dL (7.0-18.7); Bilirubin, Total 0.3 mg/dL (0.2-1.2); Calc. Creatinine Clearance 89 mL/min (70-130); Calcium 8.8 mg/dL (7.8-10.44); Carbon Dioxide 25 mmol/L (22-29); Chloride 106 mmol/L (98-107); Estimated GFR-MDRD Greater than 90; Globulin 3.3 g/dL (2.4-3.5); Glucose 121 mg/dL (70-105); Potassium 4.3 mmol/L (3.5-5.1); Sodium 137 mmol/L (136-145)
[2019-08-04] MEDS: Cefepime 2 GM in Sodium Chloride 0.9% 100 ML IVPB SCH ×2 (08:09→19:46)
[2019-08-04] MEDS: Hydroxychloroquine Sulfate 200 MG TAB PO SCH ×2 (08:09→19:47)
[2019-08-04] MEDS: methylPREDNISolone Sod Succ 40 MG VIAL IVP SCH (08:09)
[2019-08-04] MEDS: Enoxaparin Sodium 40 MG/0.4 ML SYRINGE SC SCH (08:10)
[2019-08-04] MEDS: Tiotropium Bromide 4 GM INHALER IH SCH (08:10)
[2019-08-04] MEDS: HYDROcodone/Acetaminophen 5/325 mg Tablet PO PRN (11:50)
[2019-08-04] MEDS: Sodium Chloride 0.9% 1,000 ML IV SCH (12:00)
--- NOTE | 2019-08-04 13:26 | PDOC.HOSPP ---
- Subjective Encounter Date: 08/04/19 Subjective: Doing very well. No complaint except some back pain that is chronic for her. Takes Tramadol at home. No SOB. No cough. - Objective Vital Signs & Weight: Vital Signs (12 hours) Temp Pulse Resp BP BP Pulse Ox 08/04/19 11:55 97.3 F L 95 18 118/78 94 L 08/04/19 08:20 97.6 F 77 18 142/82 H 99 08/04/19 08:00 99 08/04/19 05:17 97.7 F 101 H 20 138/87 98 Weight Admit Weight 103 lb 2.821 oz Weight 100 lb 3.2 oz Most Recent Monitor Data Heart Rate from ECG 103 NIBP 112/77 NIBP BP-Mean 88 Respiration from ECG 27 SpO2 99 I&O: 08/03/19 08/04/19 08/05/19 06:59 06:59 06:59 Intake Total 720 1238 Output Total 1350 1300 Balance -630 -62 Result Diagrams: 08/04/19 06:40 08/04/19 06:40 Hospitalist ROS - Medication Medications: Active Medications Generic Name Dose Route Start Last Admin Trade Name Freq PRN Reason Stop Dose Admin Acetaminophen 650 mg 07/31/19 19:30 08/04/19 07:02 Tylenol PO 650 mg Q4H PRN Administration Headache/Fever/Mild Pain (1-3) Hydrocodone Bitart/Acetaminophen 1 tab 07/31/19 19:30 08/04/19 11:50 [place] 5/325 PO 1 tab Q4H PRN Administration Moderate Pain (4-6) Albuterol Sulfate 2 puff 08/01/19 14:30 08/02/19 15:50 Proventil Hfa INH 2 puff Q4H PRN Administration SOB &/or Wheezing Albuterol Sulfate 2 puff 08/02/19 18:30 08/04/19 10:42 Proventil Hfa INH 2 puff [id number] NEVA Administration Alprazolam 0.125 mg 08/03/19 08:39 08/03/19 21:36 Xanax PO 0.125 mg TIDPRN PRN Administration Anxiety Azithromycin 250 mg 08/01/19 21:00 08/03/19 21:35 Zithromax PO 08/04/19 21:01 250 mg 2100 NEVA Administration Calcium Carbonate 1,000 mg 07/31/19 19:30 08/01/19 16:36 Tums PO 1,000 mg Q4H PRN Administration Heartburn or Indigestion Enoxaparin Sodium 40 mg 08/01/19 09:00 08/04/19 08:10 Lovenox SC 40 mg 0900 NEVA Administration Hydroxychloroquine Sulfate 200 mg 08/02/19 21:00 08/04/19 08:09 Plaquenil PO 08/06/19 09:01 200 mg BID NEVA Administration Cefepime HCl 2 gm/ Sodium 100 mls @ 200 mls/hr 08/02/19 21:00 08/04/19 08:09 Chloride IVPB 100 mls Q12HR NEVA Administration Sodium Chloride 1,000 mls @ 50 mls/hr 08/02/19 18:00 08/04/19 12:00 Normal Saline 0.9% IV Not Given .Q20H NEVA Methylprednisolone Sodium Succinate 40 mg 08/02/19 21:00 08/04/19 08:09 Solu-Medrol IVP 40 mg BID NEVA Administration Pantoprazole Sodium 40 mg 08/04/19 09:00 08/04/19 08:09 Protonix PO 40 mg DAILY NEVA Administration Tiotropium [place] 0 gm 08/03/19 07:00 08/04/19 08:10 Spiriva Respimat IH 4 gm DAILY-RT NEVA Administration - Exam General Appearance: NAD, awake alert Heart: RRR, no murmur, no gallops, no rubs, normal peripheral pulses Respiratory: CTAB, no wheezes, no rales, no ronchi, normal chest expansion, no tachypnea, normal percussion Respiratory - other findings: Exam limited by habitus and inability to take deep breaths. Extremities: no cyanosis, no clubbing, no edema Musculoskeletal: normal tone Psychiatric: normal affect, normal behavior, A&O x 3 Hosp A/P (1) COVID-19 virus infection Code(s): U07.1 - COVID-19 Status: Acute (2) Asthma exacerbation Code(s): J45.901 - UNSPECIFIED ASTHMA WITH (ACUTE) EXACERBATION Status: Acute Qualifiers: Asthma severity: unspecified severity (3) Pneumonia Code(s): J18.9 - PNEUMONIA, UNSPECIFIED ORGANISM Status: Acute Qualifiers: Pneumonia type: due to unspecified organism Laterality: right Lung location: lower lobe of lung Qualified Code(s): J18.9 - Pneumonia, unspecified organism (4) Scoliosis Status: Chronic (5) Transaminitis Code(s): R74.0 - NONSPEC ELEV OF LEVELS OF TRANSAMNS & LACTIC ACID DEHYDRGNSE Status: Acute (6) Back pain Code(s): M54.9 - DORSALGIA, UNSPECIFIED Status: Acute - Plan Covid: ID consult appreciated. Hydroxychloroquine and Azithro given her high risk with asthma and severe scoliosis. Steroids increased 08/03/19. Seems to be doing fairly well after her episode yesterday. At the time of the problem yesterday, she was not able to talk due to tachypnea. Talking to her today, it sounds like it might have been more of a panic attack. Excluding that, she has been very stable. If she remains afebrile and stable, she could likely DC home in the next day or two. Resp failure: Supplemental oxygen. Sats are good on 2 lpm/NC for now. Very briefly had sats in the 70's yesterday, but quickly resolved. Asthma: MDI Low dose steroids. Feeling better overall. Decrease steroids to qday. Transaminitis: Will need to be follow as OP. Numbers have been stable. Likely related to the current viral infection. If remain elevated when convalescent, will need workup. Back pain: Related to scoliosis. Continue po pain meds. Disposition: She lives with her mother, sister and niece. They are asymptomatic. Can likely DC back to home when ready. Hopefully, she will be ready tomorrow.
[2019-08-04] MEDS: Azithromycin 250 MG TAB PO SCH (19:47)
[2019-08-04] MEDS: traMADol HCl 50 MG TAB PO SCH (19:48)
[2019-08-04 23:13] LABS: Bacteria/HPF None Seen HPF (None Seen); Bilirubin Negative (Negative); Blood, Urine Negative (Negative); Clarity Clear (Clear); Glucose, Urine (Dipstick) Normal (Negative); Leukocyte Negative Leu/uL (Negative); Nitrite Negative (Negative); Protein, Urine (Dipstick) 30 mg/dL (Neg-Trace); RBC/HPF 0-3 HPF (0-3); Squamous Epithelial 0-3 HPF (0-3); Urobilinogen Normal mg/dL (Less than 2); WBC/HPF 0-3 HPF (0-3)
[2019-08-05] MEDS: Albuterol 200 PUFF (6.7GM INHALER) INH SCH ×5 (03:42→18:28)
[2019-08-05] MEDS: Tiotropium Bromide 4 GM INHALER IH SCH (06:22)
[2019-08-05] MEDS: Sodium Chloride 0.9% 1,000 ML IV SCH (06:23)
[2019-08-05] MEDS: HYDROcodone/Acetaminophen 5/325 mg Tablet PO PRN ×2 (06:29→14:59)
[2019-08-05] MEDS: Cefepime 2 GM in Sodium Chloride 0.9% 100 ML IVPB SCH (08:08)
[2019-08-05] MEDS: Enoxaparin Sodium 40 MG/0.4 ML SYRINGE SC SCH (08:09)
[2019-08-05] MEDS: traMADol HCl 50 MG TAB PO SCH (08:09)
[2019-08-05] MEDS: Hydroxychloroquine Sulfate 200 MG TAB PO SCH ×2 (08:09→18:28)
[2019-08-05 08:57] VITALS: TEMP 97.3
[2019-08-05] MEDS ORDERED: methylPREDNISolone Sod Succ 40 MG VIAL IVP SCH (09:00)
[2019-08-05 12:41] VITALS: BP 122/74
[2019-08-05] MEDS ORDERED: Hydroxychloroquine Sulfate 200 MG TAB PO SCH (13:45)
--- NOTE | 2019-08-05 14:12 | PRG ---
DATE OF SERVICE: 08/05/2019 SUBJECTIVE: Sitting up in bed. She is feeling back to normal. No cough. No dyspnea or chest pain. No abdominal pain or diarrhea. OBJECTIVE: VITAL SIGNS: She has been afebrile for a while now, pulse 96, respirations 18, and O2 saturation 94% on room air. LUNGS: Clear. HEART: S1, S2. Regular rate. ABDOMEN: Soft. Not distended. Kyphoscoliosis. LABORATORY DATA: Creatinine 0.65, glucose 121, AST 54, ALT 132, alkaline phosphatase 131, bilirubin normal. We do not have any inflammatory markers submitted here. Troponin was normal. ASSESSMENT AND DISCUSSION: COVID-19, severe kyphoscoliosis, clear-cut improvement. I believe she is eligible for discharge planning. She lives in a house, who has her own room and would have to be wearing a mask at home. Family member seems to be in good health situation right now. Job ID: [id number]
--- NOTE | 2019-08-05 22:05 | DIS ---
DATE OF ADMISSION: 07/31/2019 DATE OF DISCHARGE: 08/05/2019 DISCHARGE DIAGNOSES: 1. COVID-19 infection. 2. Severe scoliosis. 3. History of asthma. 4. Mild transaminitis, likely associated with COVID-19 infection. 5. Back pain, chronic. 6. Abdominal discomfort, suspected to be related to medications. 7. Acute hypoxic respiratory failure. HISTORY OF PRESENT ILLNESS: The patient is a 34-year-old female with a history of severe scoliosis and asthma, who presented with shortness of breath which she assumed it is related to her scoliosis and asthma. Initially she presented to [facility], where she was tested for COVID and subsequently had positive result and was subsequently referred to the hospital. Her initial chest x-ray only showed evidence of right basilar consolidation. CT chest with angiogram showed no evidence of PE, but multifocal bilateral ground-glass opacities and admixed consolidation consistent with viral pneumonia. HOSPITAL COURSE: The patient was admitted and seen in consultation by Dr. Buenrostro of the Infectious Disease Service. She was started on Plaquenil and azithromycin. The following day, the patient continued to do well; however, later in the day developed some discomfort in her upper abdomen and chest, and became short of breath. She subsequently had a normal EKG, but nurse noted some hypoxia with saturations in the 70s and tachycardia with heart rate up to 140. Code Green Rapid response was called. The patient was evaluated, subsequently moved to ICU, given Ativan and morphine, and subsequently improved and remained stable throughout the remainder of her hospital course. She quickly recovered her oxygenation levels and the heart rate that was felt the patient might actually have something of an anxiety issue leading to this event. Otherwise, she had some upper abdominal discomfort, which was felt to be related to azithromycin and hydroxychloroquine. She also had some issues with her back pain, which was chronic for her. Once the patient was consistently afebrile throughout her hospitalization, her oxygen saturations were quite good and symptomatically improved. She was felt to be stable for discharge to home. PHYSICAL EXAMINATION: VITAL SIGNS: On the day of discharge temperature is 97.3, pulse 96, respirations 18, O2 saturations 94% on room air, BP 122/74. GENERAL: She is awake, alert, oriented, pleasant, and cooperative. HEART: Regular rate and rhythm without murmurs, gallops, or rubs. LUNGS: Diminished, difficult to assess because of her body habitus, but clear with no evidence of wheezing. ABDOMEN: Benign. EXTREMITIES: No edema. DISPOSITION: The patient will be discharged to home. DIET: She will have a regular diet. ACTIVITY: As tolerated. DISCHARGE MEDICATIONS: Dr. Buenrostro discussed with the patient the need for precautions to take at home and her family. She will continue on, 1. Proventil HFA p.r.n. 2. Tramadol 50 mg b.i.d. p.r.n. 3. Lyrica 75 mg b.i.d. 4. Flexeril 10 mg at bedtime. 5. Flovent HFA 110 mcg twice daily. 6. She will be dispensed one dose of hydroxychloroquine 200 mg to take on the morning after discharge to complete her 5-day course. FOLLOWUP: She is to follow up with her PCP at [facility]. She will need to have followup labs in order to ensure that her liver function tests are improved and that her GI symptoms improved when she comes off the medications. She can return to the hospital at anytime should she have need to do so. TIME SPENT: Total time in discharge activities was greater than 30 minutes. Job ID: [id number] MTDD
--- NOTE | 2019-08-09 07:35 | EKG ---
Test Reason : Blood Pressure : / mmHG Vent. Rate : 113 BPM Atrial Rate : 113 BPM P-R Int : 118 ms QRS Dur : 094 ms QT Int : 346 ms P-R-T Axes : 053 033 -01 degrees QTc Int : 474 ms Sinus tachycardia with occasional Premature ventricular complexes Minimal voltage criteria for LVH, may be normal variant Lateral infarct (cited on or before 02-AUG-2019) Cannot rule out Inferior infarct , age undetermined Abnormal ECG Confirmed by MALIKA OBRIEN, ZEINAB ([id number]) on 08/09/2019 7:35:20 AM Referred By: YOJANA Confirmed By:ZEINAB DALY MD
== END 2019-08-05 19:01 | disposition home or self-care (01) | DRG 177 ==
LOC: ERS 16:53 → 2SW 19:24 → CCU 08-02 16:14 → T4-B 08-04 00:47
PROVIDERS: ADMIT Internal Medicine; ATTEND Internal Medicine
PROC: 8E0ZXY6 Isolation (ICD-10-PCS; principal; 2019-07-31)
DX: U07.1 COVID-19 (principal); J12.89 Other viral pneumonia; J96.01 Acute respiratory failure with hypoxia; J45.901 Unspecified asthma with (acute) exacerbation; M41.9 Scoliosis, unspecified; R74.0 Nonspecific elevation of levels of transaminase and lactic acid dehydrogenase [LDH]; F41.9 Anxiety disorder, unspecified; Z79.51 Long term (current) use of inhaled steroids
CPT/HCPCS: 36415; 36416; 71045; 71275; 80048; 80053; 81003; 81015; 82805; 83605; 83735; 83880; 84484; 85025; 87040; 87070; 87205; 87804; 93005; 93010; 94760; 96365; 96367; 96375; J0456; J0692; J0696; J1650; J1940; J1956; J2060; J2270; J2405; J2920; J3490; Q9967

== ENCOUNTER 2021-03-06 06:59 | Emergency (ER) | payer SELFPAY ==
[2021-03-06] MEDS ORDERED: traMADol HCl 50 MG TAB ONE (08:20)
== END 2021-03-06 08:20 | disposition home or self-care (01) ==
LOC: ERS 06:59
DX: M41.9 Scoliosis, unspecified (principal); J45.909 Unspecified asthma, uncomplicated
CPT/HCPCS: 99283

== ENCOUNTER 2021-04-20 17:42 | Emergency (ER) | payer SELFPAY ==
[2021-04-20 18:11] LABS: #Eosinphils 0.2 thou/uL (0.0-0.7); #Lymphocytes 1.5 thou/uL (1.20-3.40); #Monocytes 0.5 thou/uL (0.11-0.59); #Neutrophils 4.8 thou/uL (1.40-6.50); %Basophils 0.3 % (0.0-1.0); %Eosinophils 2.7 % (0.0-10.0); %Monocytes 6.5 % (0.0-10.0); %Neutrophils 69.5 % (42.0-75.0); Hemoglobin 14.1 g/dL (12.0-16.0); Mean Corpuscular HGB CONC 34.2 g/dL (32.0-36.0); Mean Corpuscular Hemoglobin 30.1 pg (27.0-31.0); Mean Corpuscular Volume 87.8 fL (78.0-98.0); Mean Platelet Volume 7.6 fL (7.4-10.4); Platelet Count 289 thou/uL (130-400); White Blood Cell (WBC) Count 6.9 thou/uL (4.8-10.8)
[2021-04-20] MEDS ORDERED: Ondansetron PF 4 MG/2 ML Vial ONE (18:18)
[2021-04-20] MEDS ORDERED: Acetaminophen 500 MG TAB ONE (18:19)
[2021-04-20 18:35] LABS: ALT (SGPT) 18 U/L (8-55); AST (SGOT) 19 U/L (5-34); Albumin 4.3 g/dL (3.5-5.0); Alkaline Phosphatase 116 U/L (40-110); Anion Gap 13 mmol/L (10-20); BUN (Urea Nitrogen) 6 mg/dL (7.0-18.7); Bilirubin, Total 0.6 mg/dL (0.2-1.2); Calc. Creatinine Clearance 0 mL/min (70-130); Calcium 9.9 mg/dL (7.8-10.44); Carbon Dioxide 21 mmol/L (22-29); Chloride 106 mmol/L (98-107); Globulin 3.5 g/dL (2.4-3.5); Glucose 98 mg/dL (70-105); Lipase 23 U/L (8-78); Potassium 3.5 mmol/L (3.5-5.1); Protein, Total 7.8 g/dL (6.0-8.3); Sodium 136 mmol/L (136-145)
[2021-04-20 18:54] LABS: BHCG - Serum Negative (NEGATIVE); Pregs Control Background? CLEAR/WHITE (CLR/WHITE); Pregs Control Bar Appear? YES (CONTROL BAR)
[2021-04-20 19:14] LABS: Bilirubin Negative (Negative); Blood, Urine Trace (Negative); Clarity Clear (Clear); Glucose, Urine (Dipstick) Normal (Negative); Ketone, Urine Negative (Negative); Leukocyte Negative Leu/uL (Negative); Nitrite Negative (Negative); Pregnancy Test - Urine (BHCG) Negative (Negative); Protein, Urine (Dipstick) Negative (Neg-Trace); RBC/HPF 0-3 HPF (0-3); Specific Gravity 1.004 (1.002-1.036); Specific Gravity, Urine 1.004 (1.002-1.036); Squamous Epithelial 0-3 HPF (0-3); Urobilinogen Normal mg/dL (Less than 2); WBC/HPF 0-3 HPF (0-3); pH, Urine 6.5 (5.0-9.0)
[2021-04-20 19:15] LABS: Bacteria/HPF 1+ HPF (None Seen); Pregu Control Background? CLEAR/WHITE (CLR/WHITE); Pregu Control Bar Appear? YES (CONTROL BAR)
[2021-04-20 20:42] LABS: SARS-CoV-2 NAA Rapid Test Not Detected (NotDetected)
== END 2021-04-20 20:05 | disposition home or self-care (01) ==
LOC: ERS 17:42
DX: R50.9 Fever, unspecified (principal); Z20.822 Contact with and (suspected) exposure to COVID-19; J45.909 Unspecified asthma, uncomplicated
CPT/HCPCS: 0240U; 36415; 71045; 74177; 80053; 81003; 81015; 81025; 83690; 84703; 85025; 93005; 96374; J2405; Q9967

== ENCOUNTER 2021-07-17 23:07 | Emergency (ER) | payer OTHER, SELFPAY ==
[2021-07-17 23:40] LABS: Bilirubin Negative (Negative); Blood, Urine Negative (Negative); Clarity Clear (Clear); Glucose, Urine (Dipstick) Normal (Negative); Ketone, Urine Negative (Negative); Leukocyte Negative Leu/uL (Negative); Nitrite Negative (Negative); Protein, Urine (Dipstick) Negative (Neg-Trace); Specific Gravity, Urine 1.014 (1.002-1.036); Urobilinogen Normal mg/dL (Less than 2)
[2021-07-17 23:50] LABS: Pregnancy Test - Urine (BHCG) Negative (Negative); Pregu Control Background? CLEAR/WHITE (CLR/WHITE); Pregu Control Bar Appear? YES (CONTROL BAR); Specific Gravity 1.014 (1.002-1.036)
[2021-07-18] MEDS ORDERED: Ondansetron PF 4 MG/2 ML Vial ONE (03:08)
[2021-07-18] MEDS ORDERED: Morphine 4 MG/ML VIAL ONE (03:25)
[2021-07-18 03:36] LABS: #Eosinphils 0.1 thou/uL (0.0-0.7); #Monocytes 0.4 thou/uL (0.11-0.59); #Neutrophils 5.8 thou/uL (1.40-6.50); %Basophils 0.4 % (0.0-1.0); %Eosinophils 1.2 % (0.0-10.0); %Lymphocytes 23.5 % (21.0-51.0); %Monocytes 5.3 % (0.0-10.0); %Neutrophils 69.6 % (42.0-75.0); Hemoglobin 13.7 g/dL (12.0-16.0); Mean Corpuscular HGB CONC 33.9 g/dL (32.0-36.0); Mean Corpuscular Hemoglobin 29.8 pg (27.0-31.0); Mean Corpuscular Volume 87.9 fL (78.0-98.0); Mean Platelet Volume 7.9 fL (7.4-10.4); Platelet Count 283 thou/uL (130-400); RBC Distribution Width 11.9 % (11.5-14.5); White Blood Cell (WBC) Count 8.3 thou/uL (4.8-10.8)
[2021-07-18 03:56] LABS: ALT (SGPT) 18 U/L (8-55); AST (SGOT) 21 U/L (5-34); Albumin 4.3 g/dL (3.5-5.0); Alkaline Phosphatase 97 U/L (40-110); Anion Gap 15 mmol/L (10-20); BUN (Urea Nitrogen) 12 mg/dL (7.0-18.7); Bilirubin, Total 0.4 mg/dL (0.2-1.2); Calc. Creatinine Clearance 0 mL/min (70-130); Calcium 9.6 mg/dL (7.8-10.44); Carbon Dioxide 24 mmol/L (22-29); Chloride 102 mmol/L (98-107); Globulin 3.2 g/dL (2.4-3.5); Glucose 100 mg/dL (70-105); Lipase 22 U/L (8-78); Potassium 3.8 mmol/L (3.5-5.1); Protein, Total 7.5 g/dL (6.0-8.3); Sodium 137 mmol/L (136-145)
== END 2021-07-18 06:06 | disposition home or self-care (01) ==
LOC: ERS 23:07
DX: R10.11 Right upper quadrant pain (principal)
CPT/HCPCS: 36415; 74177; 76705; 80053; 81003; 81025; 83690; 85025; 96374; 96375; J2270; J2405

== ENCOUNTER 2022-06-01 08:01 | Emergency (ER) | payer SELFPAY ==
[2022-06-01 08:49] LABS: #Basophils 0.1 thou/uL (0.0-0.2); #Eosinphils 0.2 thou/uL (0.0-0.7); #Lymphocytes 2.5 thou/uL (1.20-3.40); #Monocytes 0.5 thou/uL (0.11-0.59); #Neutrophils 3.8 thou/uL (1.40-6.50); %Basophils 0.8 % (0.0-1.0); %Eosinophils 3.3 % (0.0-10.0); %Lymphocytes 34.7 % (21.0-51.0); %Neutrophils 54.3 % (42.0-75.0); Hemoglobin 13.9 g/dL (12.0-16.0); Mean Corpuscular HGB CONC 33.7 g/dL (32.0-36.0); Mean Corpuscular Hemoglobin 30.3 pg (27.0-31.0); Mean Platelet Volume 8.4 fL (7.4-10.4); Platelet Count 296 10x3/uL (130-400); RBC Distribution Width 11.8 % (11.5-14.5); Red Blood Cell (RBC) Count 4.59 mill/uL (4.20-5.40); White Blood Cell (WBC) Count 7.1 10x3/uL (4.8-10.8)
[2022-06-01 09:26] LABS: ALT (SGPT) 22 U/L (8-55); Albumin 4.4 g/dL (3.5-5.0); Alkaline Phosphatase 115 U/L (40-110); Anion Gap 14 mmol/L (10-20); BUN (Urea Nitrogen) 15 mg/dL (7.0-18.7); Bilirubin, Total 0.4 mg/dL (0.2-1.2); Calc. Creatinine Clearance 0 mL/min (70-130); Calcium 9.9 mg/dL (7.8-10.44); Carbon Dioxide 19 mmol/L (22-29); Chloride 106 mmol/L (98-107); Estimated GFR 111; Globulin 3.7 g/dL (2.4-3.5); Glucose 96 mg/dL (70-105); Lipase 34 U/L (8-78); Potassium 4.4 mmol/L (3.5-5.1); Protein, Total 8.1 g/dL (6.0-8.3); Sodium 135 mmol/L (136-145)
[2022-06-01 09:29] LABS: AST (SGOT) 24 U/L (5-34)
[2022-06-01] MEDS ORDERED: Dexamethasone 10 MG/ML VIAL ONE (12:42)
[2022-06-01] MEDS ORDERED: Ketorolac Tromethamine 30 MG/ML VIAL ONE (12:42)
[2022-06-01] MEDS ORDERED: Acetaminophen 500 MG TAB ONE (12:42)
== END 2022-06-01 14:23 | disposition home or self-care (01) ==
LOC: ERS 08:01
DX: J06.9 Acute upper respiratory infection, unspecified (principal); Z20.822 Contact with and (suspected) exposure to COVID-19
CPT/HCPCS: 36415; 71045; 80053; 83690; 84484; 85025; 87804; 93005; 96374; 96375; J1100; J1885; U0003; U0005

== ENCOUNTER 2023-06-03 07:36 | Inpatient (IN) | payer SELFPAY ==
[2023-06-03 07:57] LABS: #Eosinphils 0.1 thou/uL (0.0-0.7); #Monocytes 0.6 thou/uL (0.11-0.59); #Neutrophils 14.3 thou/uL (1.40-6.50); %Basophils 0.2 % (0.0-1.0); %Eosinophils 0.3 % (0.0-10.0); %Lymphocytes 3.5 % (21.0-51.0); %Monocytes 3.6 % (0.0-10.0); Hematocrit 41.5 % (36.0-47.0); Hemoglobin 13.9 g/dL (12.0-16.0); Mean Corpuscular HGB CONC 33.5 g/dL (32.0-36.0); Mean Corpuscular Hemoglobin 28.3 pg (27.0-31.0); Mean Corpuscular Volume 84.3 fl (78.0-98.0); Mean Platelet Volume 10.1 fL (7.4-10.4); Platelet Count 298 10x3/uL (130-400); RBC Distribution Width 13.5 % (11.5-14.5); Red Blood Cell (RBC) Count 4.92 mill/uL (4.20-5.40); White Blood Cell (WBC) Count 15.6 10x3/uL (4.8-10.8)
[2023-06-03] MEDS ORDERED: Ketorolac Tromethamine 30 MG (1 mL) VIAL ONE (08:02)
[2023-06-03] MEDS ORDERED: Acetaminophen 325 MG TAB ONE (08:02)
[2023-06-03] MEDS ORDERED: cefTRIAXone (ROCEPHIN) 1 GM VIAL ONE (08:03)
[2023-06-03] MEDS ORDERED: Sodium Chloride 0.9% 100 ML ONE (08:03)
[2023-06-03 08:17] LABS: BHCG - Serum Negative (NEGATIVE); Pregs Control Background? CLEAR/WHITE (CLR/WHITE); Pregs Control Bar Appear? YES (CONTROL BAR)
[2023-06-03 08:19] LABS: ALT (SGPT) 21 U/L (8-55); AST (SGOT) 27 U/L (5-34); Albumin 4.3 g/dL (3.5-5.0); Alkaline Phosphatase 160 U/L (40-110); Anion Gap 13 mmol/L (10-20); BUN (Urea Nitrogen) 9 mg/dL (7.0-18.7); Bilirubin, Total 0.4 mg/dL (0.2-1.2); Calc. Creatinine Clearance 0 mL/min (70-130); Calcium 9.2 mg/dL (7.8-10.44); Carbon Dioxide 21 mmol/L (22-29); Chloride 104 mmol/L (98-107); Estimated GFR 105; Globulin 3.6 g/dL (2.4-3.5); Glucose 114 mg/dL (70-105); Lipase 16 U/L (8-78); Magnesium 1.7 mg/dL (1.6-2.6); Protein, Total 7.9 g/dL (6.0-8.3); Sodium 134 mmol/L (136-145)
[2023-06-03 08:37] LABS: PTT 26.7 sec (22.9-36.1); Prothrombin Time 12.8 sec (12.0-14.7)
[2023-06-03 08:38] LABS: Bacteria/HPF 2+ HPF (None Seen); Bilirubin Negative (Negative); Blood, Urine Trace (Negative); CAUTI Indications for Culture Dysuria,urgency,freq; Clarity Clear (Clear); Glucose, Urine (Dipstick) Normal (Negative); Ketone, Urine Negative (Negative); Leukocyte 250 Leu/uL (Negative); Nitrite Negative (Negative); Protein, Urine (Dipstick) Negative (Neg-Trace); Specific Gravity, Urine 1.009 (1.002-1.036); Urobilinogen Normal mg/dL (Less than 2); WBC/HPF 21-50 HPF (0-3); pH, Urine 6.5 (5.0-9.0)
[2023-06-03 08:39] LABS: Urine Culture Reflex Yes Yes
[2023-06-03 09:27] LABS: SARS-CoV-2 NAA Rapid Test Not Detected (NotDetected)
[2023-06-03 11:54] VITALS: BMI 22.4
[2023-06-03] MEDS ORDERED: Senokot S 8.6-50 MG TAB PO PRN (12:14)
[2023-06-03] MEDS ORDERED: Ondansetron ODT 4 MG TAB PO PRN (12:14)
[2023-06-03] MEDS ORDERED: Ondansetron PF 4 MG/2 ML Vial IVP PRN (12:14)
[2023-06-03] MEDS ORDERED: tiZANidine HCl 4 MG TAB PO PRN (12:16)
[2023-06-03] MEDS ORDERED: Albuterol 200 PUFF (6.7GM INHALER) INH PRN ×2 (12:16→12:22)
[2023-06-03] MEDS ORDERED: Electrolyte Replacement Protocol 1 EACH FS SCH (12:30)
[2023-06-03] MEDS: Sodium Chloride 0.9% 1,000 ML IV SCH (14:16)
[2023-06-03] MEDS: Magnesium 2 GM/50 ML(in water) 2 GM in Premix 1 BAG IVPB SCH (14:16)
[2023-06-03] MEDS: Acetaminophen 325 MG TAB PO PRN (18:47)
[2023-06-03] MEDS: Cyclobenzaprine 10 MG TAB PO SCH (20:29)
[2023-06-03] MEDS: Pregabalin 75 MG CAP PO SCH (20:29)
[2023-06-03] MEDS ORDERED: Fluticasone Propionate HFA 44 MCG AER INH SCH (21:00)
[2023-06-03] MEDS: Mometasone 100 MCG HFA INHALER (RT USE) INH SCH (21:50)
[2023-06-03] MEDS: Ketorolac Tromethamine 30 MG (1 mL) VIAL IVP PRN (22:41)
[2023-06-04] MEDS: traMADol HCl 50 MG TAB PO PRN (06:54)
[2023-06-04] MEDS: Mometasone 100 MCG HFA INHALER (RT USE) INH SCH (07:23)
[2023-06-04] MEDS: cefTRIAXone\\ROCEPHIN 1 GM in Sodium Chloride 0.9% 100 ML IVPB SCH (08:30)
[2023-06-04] MEDS ORDERED: Polyethylene Glycol 3350 17 GM Packet PO PRN (10:13)
[2023-06-04] MEDS: Ipratropium/Albuterol 3 ML NEB NEB SCH (11:13)
[2023-06-04] MEDS: Fioricet 325/50/40 mg Tablet PO PRN (15:27)
[2023-06-04 20:02] LABS: #Eosinphils 0.1 thou/uL (0.0-0.7); #Monocytes 0.5 thou/uL (0.11-0.59); #Neutrophils 6.8 thou/uL (1.40-6.50); %Basophils 0.4 % (0.0-1.0); %Eosinophils 0.6 % (0.0-10.0); %Lymphocytes 12.1 % (21.0-51.0); %Monocytes 5.6 % (0.0-10.0); %Neutrophils 81.1 % (42.0-75.0); Hematocrit 40.2 % (36.0-47.0); Mean Corpuscular HGB CONC 32.3 g/dL (32.0-36.0); Mean Corpuscular Hemoglobin 27.8 pg (27.0-31.0); Mean Corpuscular Volume 86.1 fl (78.0-98.0); Platelet Count 280 10x3/uL (130-400); Red Blood Cell (RBC) Count 4.67 mill/uL (4.20-5.40); White Blood Cell (WBC) Count 8.3 10x3/uL (4.8-10.8)
[2023-06-04 20:27] LABS: Magnesium 1.9 mg/dL (1.6-2.6)
[2023-06-04 20:28] LABS: Anion Gap 15 mmol/L (10-20); BUN (Urea Nitrogen) 8 mg/dL (7.0-18.7); Calc. Creatinine Clearance 76 mL/min (70-130); Calcium 8.8 mg/dL (7.8-10.44); Carbon Dioxide 17 mmol/L (22-29); Chloride 108 mmol/L (98-107); Estimated GFR 108; Glucose 102 mg/dL (70-105); Potassium 4.3 mmol/L (3.5-5.1); Sodium 136 mmol/L (136-145)
[2023-06-04] MEDS: Senokot S 8.6-50 MG TAB PO SCH (20:45)
[2023-06-04] MEDS: Saccharomyces boulardii 250 MG CAP PO SCH (20:45)
[2023-06-04 21:13] LABS: Troponin I Less than 0.010 ng/mL (< 0.028)
[2023-06-04] MEDS: Magnesium 2 GM/50 ML(in water) 2 GM in Premix 1 BAG IVPB SCH (23:10)
[2023-06-05 05:34] LABS: #Eosinphils 0.1 thou/uL (0.0-0.7); #Monocytes 0.9 thou/uL (0.11-0.59); #Neutrophils 5.3 thou/uL (1.40-6.50); %Basophils 0.4 % (0.0-1.0); %Eosinophils 1.2 % (0.0-10.0); %Lymphocytes 17.1 % (21.0-51.0); %Monocytes 11.8 % (0.0-10.0); Hematocrit 35.4 % (36.0-47.0); Hemoglobin 11.6 g/dL (12.0-16.0); Mean Corpuscular HGB CONC 32.8 g/dL (32.0-36.0); Mean Corpuscular Volume 85.5 fl (78.0-98.0); Mean Platelet Volume 10.5 fL (7.4-10.4); Platelet Count 261 10x3/uL (130-400); Red Blood Cell (RBC) Count 4.14 mill/uL (4.20-5.40); White Blood Cell (WBC) Count 7.6 10x3/uL (4.8-10.8)
[2023-06-05 05:51] LABS: Anion Gap 9 mmol/L (10-20); BUN (Urea Nitrogen) 6 mg/dL (7.0-18.7); CRP (Inflammatory) 5.02 mg/dL (= or < 0.5); Calc. Creatinine Clearance 84 mL/min (70-130); Carbon Dioxide 21 mmol/L (22-29); Chloride 109 mmol/L (98-107); Estimated GFR 117; Glucose 124 mg/dL (70-105); Magnesium 2.4 mg/dL (1.6-2.6); Potassium 4.2 mmol/L (3.5-5.1); Sodium 135 mmol/L (136-145)
[2023-06-05] MEDS: cefTRIAXone\\ROCEPHIN 1 GM in Sodium Chloride 0.9% 100 ML IVPB SCH (16:56)
[2023-06-06 06:51] LABS: #Eosinphils 0.2 thou/uL (0.0-0.7); #Monocytes 0.6 thou/uL (0.11-0.59); #Neutrophils 3.3 thou/uL (1.40-6.50); %Basophils 0.3 % (0.0-1.0); %Eosinophils 3.9 % (0.0-10.0); %Lymphocytes 31.7 % (21.0-51.0); %Monocytes 9.9 % (0.0-10.0); %Neutrophils 53.7 % (42.0-75.0); Hematocrit 37.7 % (36.0-47.0); Hemoglobin 12.3 g/dL (12.0-16.0); Mean Corpuscular HGB CONC 32.6 g/dL (32.0-36.0); Mean Corpuscular Hemoglobin 28.1 pg (27.0-31.0); Mean Corpuscular Volume 86.1 fl (78.0-98.0); Mean Platelet Volume 10.2 fL (7.4-10.4); Platelet Count 288 10x3/uL (130-400); RBC Distribution Width 14.3 % (11.5-14.5); Red Blood Cell (RBC) Count 4.38 mill/uL (4.20-5.40); White Blood Cell (WBC) Count 6.2 10x3/uL (4.8-10.8)
[2023-06-06 07:17] LABS: Anion Gap 11 mmol/L (10-20); BUN (Urea Nitrogen) 8 mg/dL (7.0-18.7); Calc. Creatinine Clearance 89 mL/min (70-130); Calcium 8.9 mg/dL (7.8-10.44); Carbon Dioxide 20 mmol/L (22-29); Chloride 109 mmol/L (98-107); Estimated GFR 119; Glucose 88 mg/dL (70-105); Sodium 136 mmol/L (136-145)
[2023-06-06] MEDS ORDERED: Ipratropium/Albuterol 3 ML NEB NEB PRN (10:47)
[2023-06-06] MEDS ORDERED: Iopamidol 370 76% 100 ML VIAL ONE (10:56)
[2023-06-06] MEDS: cefTRIAXone\\ROCEPHIN 2 GM in Sodium Chloride 0.9% 100 ML IVPB SCH (11:23)
[2023-06-06] MEDS: Calcium Carbonate 500 MG ChewTAB PO PRN (14:39)
[2023-06-06 16:25] VITALS: BP 122/84; TEMP 98.8
== END 2023-06-06 16:59 | disposition home or self-care (01) | DRG 872 ==
LOC: ERS 07:36 → ERHOLD 11:32 → OBSVTOIN 12:13 → MSONC 13:40
PROVIDERS: ADMIT Family Medicine; ATTEND Hospitalist
DX: A41.51 Sepsis due to Escherichia coli [E. coli] (principal); Q60.0 Renal agenesis, unilateral; J45.901 Unspecified asthma with (acute) exacerbation; N10 Acute pyelonephritis; G89.29 Other chronic pain; M54.9 Dorsalgia, unspecified; M41.9 Scoliosis, unspecified; G43.909 Migraine, unspecified, not intractable, without status migrainosus; K59.00 Constipation, unspecified; Z79.51 Long term (current) use of inhaled steroids; Z98.890 Other specified postprocedural states; Z79.899 Other long term (current) drug therapy; Z11.52 Encounter for screening for COVID-19
CPT/HCPCS: 36415; 36416; 71045; 71275; 74176; 80048; 80053; 81001; 83605; 83690; 83735; 83880; 84484; 84703; 85025; 85610; 85730; 86140; 87040; 87077; 87086; 87149; 87186; 93005; 94640; 94760; 96365; 96375; J0696; J1885; J3475; J3490; J7050; J7620; Q9967